=== PATIENT | male | born 1935 | race African-American/Black ===

== ENCOUNTER 2019-08-21 19:45 | Emergency (ER) | payer OTHER ==
[~2019-08-21] VITALS: Ht 177.8 cm; Wt 82.0 kg
[2019-08-21 21:55] LABS: BASOPHILS % 0.6 % (0.0-2.0); HEMATOCRIT. 38.7 % (42.0-52.0); HEMOGLOBIN. 12.7 g/dL (14.0-18.0); LYMPHOCYTES % 22.6 % (20.0-50.0); MEAN CORPUSCULAR HEMOGLOBIN 27.9 pg (28.0-32.0); MEAN CORPUSCULAR VOLUME 84.9 fL (80.0-94.0); MEAN PLATELET VOLUME 9.1 fl (7.4-10.4); MONOCYTES % 11.5 % (2.0-8.0); NEUTROPHILS % 63.3 % (40.0-76.0); PLATELET 154 x1000/uL (130-400); RED BLOOD CELL COUNT 4.55 mill/uL (4.7-6.1); RED CELL DISTRIBUTION WIDTH 18.6 % (11.6-14.6)
[2019-08-21 21:58] LABS: CHLORIDE 106 mEq/L (98-107); INR 1.7; PROTHROMBIN TIME 17.4 sec (9.6-11.0)
[2019-08-21] MEDS: SODIUM CHLORIDE 0.9% 1,000 ML IV ONE (23:05)
[2019-08-22 00:30] LABS: CLARITY URINE CLEAR (CLEAR); COLOR URINE DARK YELLOW (YELLOW); KETONES URINE TRACE (NEGATIVE); LEUKOCYTE ESTERASE URINE TRACE (NEGATIVE); NITRITE URINE NEGATIVE (NEGATIVE); OCCULT BLOOD URINE 2+ (NEGATIVE); PH URINE 5.5 (4.5-8.0); PROTEIN URINE 1+ (NEGATIVE); SPECIFIC GRAVITY URINE 1.023 (1.005-1.030)
[2019-08-22 00:59] VITALS: BP 148/79
== END 2019-08-22 03:59 | disposition short-term general hospital (02) ==
LOC: ER 19:45 → CANBEDREQ 08-22 05:25
DX: R55 Syncope and collapse (principal); L08.9 Local infection of the skin and subcutaneous tissue, unspecified; N28.9 Disorder of kidney and ureter, unspecified; I48.91 Unspecified atrial fibrillation; E78.00 Pure hypercholesterolemia, unspecified; I10 Essential (primary) hypertension; Z87.891 Personal history of nicotine dependence
CPT/HCPCS: 36415; 71045; 73110; 73130; 81003; 83880; 84484; 93005; 96360; 96361; 99285